=== PATIENT | male | born 1935 | race Caucasian/White ===

== ENCOUNTER 2016-10-16 16:26 | Inpatient (IN) | payer OTHER ==
[~2016-10-16] VITALS: Ht 182.9 cm; Wt 165.0 kg
[~2016-10-16 16:26] MED LIST: ADVAIR 250/501 DISK IH; ADVAIR HFA120 INHALA IH; Advair HFA 115/21 IH; Aldactone PO; COLACE100 MG PO; COZAAR100 MG PO; Colace PO; DESYREL100 MG PO; DILANTIN100 MG PO; DOCUSATE SODIU100 MG PO; DUONEB 2.5-0.5 M3 ML AEROSOL; DUONEB 2.5-0.5 M3 ML IH; Desyrel PO; Dilantin PO; FUROSEMIDE40 MG PO; HEPARIN SO5000 UNITS SC; Humibid LA,Mucinex PO; K-DUR20 MEQ PO; LASIX20 MG PO; LASIX40 MG PO; LEVAQUIN750 MG PO; LEVOFLOXACIN750 MG PO; LIPITOR10 MG PO; LOPRESSOR25 MG PO; LOSARTAN POTAS100 MG PO; LOVENOX40 MG/0.4 SC; Lasix PO; Lipitor PO; Lopressor PO; Lovenox SC; METOPROLOL TART25 MG PO; MITRAZOL POWDER30 GM TP; MONOKET,ISMO20 MG PO; MUCINEX600 MG PO; Maalox, Mylanta PO; Milk Of Magnesia,MOM PO; Norvasc PO; PAXIL20 MG PO; PERCOCET 5/31 TABLET PO; POLYETHYLENE GL17 GM PO; PREDNISONE10 M1 PO; PREDNISONE10 MG PO; PREDNISONE20 MG PO; PROTONIX40 MG PO; PROVENTIL,2.5 MG/0.5 IH; Paxil PO; Protonix PO; SPIRIVA RESPIMAT4 GM IH; SPIRIVA1 INHALATI IH; TUMS500 MG PO; Tums,OsCal PO; ZESTRIL5 MG PO; Zeasorb Antifungal T TP; Zestril,Prinivil PO; [UNRECOGNIZED DRUG - OTHER] PO
[2016-10-16 18:10] LABS: CARBON DIOXIDE (BICARBONATE) > 40.0 MEQ/L (20-31); MCH 30.5 PG (29.0-34.0); MCHC 29.5 G/DL (30.0-36.0); MCV 103.5 FL (86-99); MEAN PLAT.VOLUME 9.8 uM^3 (9.0-12.4); PLATELET COUNT 104 K/uL (156-360); RBC DIS.WIDTH-CV 13.3 % (11.8-14.6); RBC DIS.WIDTH-SD 49.4 % (39-53); RED BLOOD COUNT 3.67 M/uL (4.00-5.50); VENOUS PCO2 108 mm Hg (41-51); WHITE BLOOD COUNT 5.7 K/uL (4.1-10.2)
[2016-10-16 18:18] LABS: CHLORIDE 97 mEq/L (99-109); POTASSIUM 4.6 mEq/L (3.7-5.4); SODIUM 141 mEq/L (136-147)
[2016-10-16 18:20] LABS: GLUCOSE 111 mg/dL (70-99)
[2016-10-16 18:21] LABS: ANION GAP 10 MEQ/L (2-14)
[2016-10-16 18:24] LABS: GFR ESTIMATE (CALCULATED) 52 mL/min/; UREA NITROGEN (BUN) 24 mg/dL (9-23)
[2016-10-16 18:31] LABS: TROP-I INTERPRETATION NEGATIVE; TROPONIN-I < 0.01 ng/mL (0.0-0.30)
[2016-10-16] MEDS ORDERED: PHENYTOIN SODI200 MG PO (20:02)
[2016-10-16] MEDS ORDERED: LIPITOR40 MG PO (20:02)
[2016-10-16] MEDS ORDERED: LASIX40 MG PO (20:03)
[2016-10-16] MEDS ORDERED: ZEASORB-AF70 G1 TP (20:05)
[2016-10-16 21:00] VITALS: BP 132/74
[2016-10-16 21:13] VITALS: BP 138/74
[2016-10-16 22:00] VITALS: BP 152/79
[2016-10-16 22:53] LABS: METH RESISTANT S AUREUS PCR POSITIVE (NEGATIVE)
[2016-10-16 22:57] LABS: PROBE CHECK PASS
[2016-10-16 23:00] VITALS: BP 168/68
[2016-10-17] VITALS (18 sets, daily range): BP systolic 93–160; BP diastolic 46–95
[2016-10-17 01:36] LABS: MAGNESIUM 2.1 mg/dL (1.3-2.7)
[2016-10-17 05:40] LABS: HEMATOCRIT 35.2 % (38.0-50.0); MCH 30.3 PG (29.0-34.0); MCV 104.5 FL (86-99); MEAN PLAT.VOLUME 10.1 uM^3 (9.0-12.4); PLATELET COUNT 88 K/uL (156-360); RBC DIS.WIDTH-CV 13.1 % (11.8-14.6); RED BLOOD COUNT 3.37 M/uL (4.00-5.50)
[2016-10-17 05:41] LABS: WHITE BLOOD COUNT 3.9 K/uL (4.1-10.2)
[2016-10-17 05:42] LABS: CHLORIDE 101 mEq/L (99-109); POTASSIUM 4.8 mEq/L (3.7-5.4); SODIUM 141 mEq/L (136-147)
[2016-10-17 05:43] LABS: MAGNESIUM 2.1 mg/dL (1.3-2.7)
[2016-10-17 05:44] LABS: GLUCOSE 119 mg/dL (70-99)
[2016-10-17 05:46] LABS: ANION GAP 8 MEQ/L (2-14)
[2016-10-17 05:48] LABS: GFR ESTIMATE (CALCULATED) > 59 mL/min/
[2016-10-17 05:49] LABS: UREA NITROGEN (BUN) 23 mg/dL (9-23)
[2016-10-17 12:46] LABS: ADD MIUA? YES; BILIRUBIN SMALL; BLOOD NEGATIVE; COLOR YELLOW ((YELLOW)); GLUCOSE (STRIP) NEGATIVE; KETONES NEGATIVE; LEUKOCYTES NEGATIVE; NITRITE NEGATIVE; PH, URINE 5.5 (5-8); PROTEIN (STRIP) 30; SPECIFIC GRAVITY 1.021 (1.000-1.030); UROBILINOGEN 0.2 MG/DL (0.2-1.0)
[2016-10-17 13:09] LABS: FINE GRANULAR CASTS 0-5 /LPF; HYALINE CASTS RARE /LPF
[2016-10-17 13:10] LABS: RED BLOOD CELLS 0-5 /HPF (0-5)
[2016-10-17 13:12] LABS: AMORPHOUS URATES CRYSTALS 1+; BACTERIA NONE SEEN; CASTS PRESENT /LPF; CRYSTALS PRESENT; EPITHELIAL CELLS RARE; MUCUS NONE SEEN; WHITE BLOOD CELLS 0-5 /HPF (0-5)
[2016-10-17 18:29] LABS: BASE EXCESS 12.3 mEq/L (-3 to +3); BICARBONATE 39.9 mEq/L (22-26); CARBOXY HGB 2.7 % (0-5); COMMENTS - BLOOD GASES AC+; DEVICE 840 VENTILATOR; FI02 30 %; METHEMOGLOBIN 1.4 % (0-1.5); MODE NIPPV; PCO2 69 mm Hg (35-45); PO2 76 mm Hg (80-100); SITE LR; pH 7.37 (7.35-7.45)
[2016-10-17 18:30] LABS: CONTINUOUS POS AIRWAY PRESSURE 5 cm H2O; PRES. SUPPORT 10 CM/H2O; TOTAL RESP RATE 19 resp/min
[2016-10-18] VITALS (17 sets, daily range): BP systolic 88–139; BP diastolic 46–103
[2016-10-18 06:08] LABS: MCH 30.8 PG (29.0-34.0); MCHC 29.7 G/DL (30.0-36.0); MCV 103.7 FL (86-99); MEAN PLAT.VOLUME 10.2 uM^3 (9.0-12.4); PLATELET COUNT 84 K/uL (156-360); RBC DIS.WIDTH-CV 13.7 % (11.8-14.6); RBC DIS.WIDTH-SD 51.6 % (39-53); RED BLOOD COUNT 3.28 M/uL (4.00-5.50)
[2016-10-18 06:33] LABS: ANION GAP 4 MEQ/L (2-14); CHLORIDE 101 MEQ/L (99-109); GFR ESTIMATE (CALCULATED) 56 mL/min/; GLUCOSE 108 mg/dL (70-99); MAGNESIUM 2.1 mg/dl (1.3-2.7); POTASSIUM 4.6 MEQ/L (3.7-5.4); SAMPLE HEMOLYSIS CHECK 0; SAMPLE ICTERIC CHECK 0; SAMPLE LIPEMIA CHECK 0; SODIUM 142 MEQ/L (136-147); UREA NITROGEN (BUN) 24 mg/dL (9-23)
[2016-10-19] VITALS (7 sets, daily range): BP systolic 106–130; BP diastolic 52–69
[2016-10-19 06:25] LABS: ANION GAP 6 MEQ/L (2-14); CHLORIDE 98 MEQ/L (99-109); GFR ESTIMATE (CALCULATED) 44 mL/min/; GLUCOSE 122 mg/dL (70-99); POTASSIUM 5.2 MEQ/L (3.7-5.4); SAMPLE HEMOLYSIS CHECK 0; SAMPLE ICTERIC CHECK 0; SAMPLE LIPEMIA CHECK 0; SODIUM 139 MEQ/L (136-147); UREA NITROGEN (BUN) 29 mg/dL (9-23)
[2016-10-19 07:14] LABS: EOSINOPHIL (%) 0 % (0-5); HEMATOCRIT 40.3 % (38.0-50.0); IMMATURE GRANULOCYTE COUNT 0.1 K/uL; LYMPHOCYTE COUNT 0.9 K/uL (1.0-2.8); MCH 31.4 PG (29.0-34.0); MCHC 28.8 G/DL (30.0-36.0); MEAN PLAT.VOLUME 10.9 uM^3 (9.0-12.4); MONOCYTE (%) 9.5 % (3-12); MONOCYTE COUNT 0.6 K/uL (0-0.8); NEUTROPHIL COUNT 4.2 K/uL (1.8-6.4); PLATELET COUNT 84 K/uL (156-360); RBC DIS.WIDTH-CV 13.7 % (11.8-14.6); RBC DIS.WIDTH-SD 54.2 % (39-53)
[2016-10-19 07:15] LABS: MCV 108.9 FL (86-99); WHITE BLOOD COUNT 5.8 K/uL (4.1-10.2)
[2016-10-20 04:12] VITALS: BP 130/72
[2016-10-20 06:00] LABS: MCH 30.7 PG (29.0-34.0); MCHC 28.9 G/DL (30.0-36.0); MEAN PLAT.VOLUME 10.5 uM^3 (9.0-12.4); PLATELET COUNT 73 K/uL (156-360); RBC DIS.WIDTH-CV 13.7 % (11.8-14.6); RED BLOOD COUNT 3.49 M/uL (4.00-5.50); WHITE BLOOD COUNT 6.3 K/uL (4.1-10.2)
[2016-10-20 06:15] LABS: EOSINOPHIL (%) 0.2 % (0-5); IMMATURE GRANULOCYTE (%) 0.8 % (0.0-0.7); IMMATURE GRANULOCYTE COUNT 0.1 K/uL; LYMPHOCYTE COUNT 1.1 K/uL (1.0-2.8); MONOCYTE (%) 9.6 % (3-12); MONOCYTE COUNT 0.6 K/uL (0-0.8); NEUTROPHIL (%) 71.5 % (45-76); NEUTROPHIL COUNT 4.5 K/uL (1.8-6.4)
[2016-10-20 06:26] LABS: ANION GAP 5 MEQ/L (2-14); CHLORIDE 100 MEQ/L (99-109); GFR ESTIMATE (CALCULATED) 34 mL/min/; GLUCOSE 114 mg/dL (70-99); SAMPLE HEMOLYSIS CHECK 0; SAMPLE ICTERIC CHECK 0; SAMPLE LIPEMIA CHECK 0; SODIUM 141 MEQ/L (136-147); UREA NITROGEN (BUN) 37 mg/dL (9-23)
[2016-10-20 13:30] VITALS: BP 98/70
[2016-10-20 19:40] VITALS: BP 130/87
[2016-10-21 06:37] LABS: HEMATOCRIT 33.5 % (38.0-50.0); MCHC 29.9 G/DL (30.0-36.0); MCV 103.7 FL (86-99); PLATELET COUNT 55 K/uL (156-360); RBC DIS.WIDTH-CV 13.7 % (11.8-14.6); RBC DIS.WIDTH-SD 51.3 % (39-53); RED BLOOD COUNT 3.23 M/uL (4.00-5.50)
[2016-10-21 06:38] LABS: WHITE BLOOD COUNT 3.8 K/uL (4.1-10.2)
[2016-10-21 06:56] LABS: ANION GAP 8 MEQ/L (2-14); CHLORIDE 101 MEQ/L (99-109); GFR ESTIMATE (CALCULATED) 31 mL/min/; GLUCOSE 113 mg/dL (70-99); POTASSIUM 5.5 MEQ/L (3.7-5.4); SAMPLE HEMOLYSIS CHECK 0; SAMPLE ICTERIC CHECK 0; SAMPLE LIPEMIA CHECK 0; SODIUM 143 MEQ/L (136-147); UREA NITROGEN (BUN) 44 mg/dL (9-23)
[2016-10-21 08:00] VITALS: BP 118/68
[2016-10-21 12:05] LABS: INTER. NORMALIZED RATIO 1.3; PROTHROMBIN TIME 13.2 (9.2-11.2); PTT 26.5 (25-32)
[2016-10-21 14:14] LABS: TYPE OF FLUID PLEURAL
[2016-10-21 14:51] LABS: BODY FLUID RBC'S 12000 /MM^3 (0-100); BODY FLUID WBC'S 500 /MM^3 (0-500)
[2016-10-21 14:56] LABS: BODY FLUID EOSINOPHILS 0 % (0-25); MONO RAW COUNT 91; MONONUCLEAR WBC'S 91 %; POLY RAW COUNT 9; POLYNUCLEAR WBC'S 9 % (0-25)
[2016-10-21 15:40] LABS: BODY FLUID LDH 49 IU/L
[2016-10-21 16:00] VITALS: BP 141/84
[2016-10-21 16:11] LABS: BODY FLUID PROTEIN < 2 G/DL
[2016-10-21 20:40] VITALS: BP 120/72
[2016-10-22 04:45] VITALS: BP 137/64
[2016-10-22 06:48] LABS: HEMATOCRIT 35.7 % (38.0-50.0); MCH 31.1 PG (29.0-34.0); MCV 103.8 FL (86-99); MEAN PLAT.VOLUME 11.6 uM^3 (9.0-12.4); PLATELET COUNT 64 K/uL (156-360); RBC DIS.WIDTH-CV 13.9 % (11.8-14.6); RBC DIS.WIDTH-SD 52.1 % (39-53); RED BLOOD COUNT 3.44 M/uL (4.00-5.50)
[2016-10-22 06:52] LABS: WHITE BLOOD COUNT 5.1 K/uL (4.1-10.2)
[2016-10-22 07:06] LABS: ANION GAP 6 MEQ/L (2-14); CHLORIDE 101 MEQ/L (99-109); GFR ESTIMATE (CALCULATED) 31 mL/min/; GLUCOSE 120 mg/dL (70-99); POTASSIUM 4.8 MEQ/L (3.7-5.4); SAMPLE HEMOLYSIS CHECK 0; SAMPLE ICTERIC CHECK 0; SAMPLE LIPEMIA CHECK 0; SODIUM 143 MEQ/L (136-147); UREA NITROGEN (BUN) 49 mg/dL (9-23)
[2016-10-22 08:23] VITALS: BP 130/70
[2016-10-22 16:05] VITALS: BP 122/79
[2016-10-23] VITALS: BP 136/89
[2016-10-23 08:35] LABS: HEMATOCRIT 38.1 % (38.0-50.0); MCH 30.6 PG (29.0-34.0); MCHC 28.6 G/DL (30.0-36.0); MEAN PLAT.VOLUME 11.2 uM^3 (9.0-12.4); PLATELET COUNT 57 K/uL (156-360); RBC DIS.WIDTH-CV 13.6 % (11.8-14.6); RBC DIS.WIDTH-SD 53.4 % (39-53); RED BLOOD COUNT 3.56 M/uL (4.00-5.50); WHITE BLOOD COUNT 5.1 K/uL (4.1-10.2)
[2016-10-23 08:38] LABS: EOSINOPHIL (%) 0 % (0-5); IMMATURE GRANULOCYTE (%) 1.2 % (0.0-0.7); IMMATURE GRANULOCYTE COUNT 0.1 K/uL; MONOCYTE (%) 8.3 % (3-12); MONOCYTE COUNT 0.4 K/uL (0-0.8); NEUTROPHIL (%) 70.3 % (45-76); NEUTROPHIL COUNT 3.6 K/uL (1.8-6.4)
[2016-10-23 08:39] VITALS: BP 143/86
[2016-10-23 09:00] LABS: ANION GAP 4 MEQ/L (2-14); CHLORIDE 99 MEQ/L (99-109); GFR ESTIMATE (CALCULATED) 29 mL/min/; GLUCOSE 111 mg/dL (70-99); SAMPLE HEMOLYSIS CHECK 0; SAMPLE ICTERIC CHECK 0; SAMPLE LIPEMIA CHECK 0; SODIUM 140 MEQ/L (136-147); UREA NITROGEN (BUN) 52 mg/dL (9-23)
[2016-10-23] MEDS ORDERED: DOCUSATE SODIU100 MG PO (15:42)
[2016-10-23] MEDS ORDERED: PREDNISOLONE SO10 MG PO (15:45)
[2016-10-23] MEDS ORDERED: LEVAQUIN750 MG PO (15:45)
[2016-10-23] MEDS ORDERED: DUONEB 2.5-0.5 M3 ML AEROSOL ×2 (15:45)
[2016-10-23] MEDS ORDERED: BENZONATATE100 MG PO (15:45)
[2016-10-23] MEDS ORDERED: HYOSCYAMINE0.125 M2 PO (15:49)
[2016-10-23] MEDS ORDERED: MORPHINE CON20 MG/M1 PO (15:49)
[2016-10-23] MEDS ORDERED: FAMOTIDINE20 MG PO (15:49)
[2016-10-23] MEDS ORDERED: LORAZEPAM0.5 MG PO (15:49)
[2016-10-23 16:11] VITALS: BP 161/92
== END 2016-10-23 18:04 | disposition hospice, home (50) | DRG 190 ==
LOC: EME → EDBD 16:26 → EME 16:26 → 4WEST 19:35 → EDOF 19:35 → 5EAST 19:35 → EDOF 19:35 → 4WEST 20:43 → 5EAST 10-19 18:14
PROVIDERS: Emergency Medicine; Family Medicine
PROC: 0W993ZZ Drainage of Right Pleural Cavity, Percutaneous Approach (ICD-10-PCS; principal; 2016-10-20)
DX: J44.0 Chronic obstructive pulmonary disease with (acute) lower respiratory infection (principal); J96.22 Acute and chronic respiratory failure with hypercapnia; J96.21 Acute and chronic respiratory failure with hypoxia; J18.9 Pneumonia, unspecified organism; I13.0 Hypertensive heart and chronic kidney disease with heart failure and stage 1 through stage 4 chronic kidney disease, or unspecified chronic kidney disease; N17.9 Acute kidney failure, unspecified; J90 Pleural effusion, not elsewhere classified; Z68.43 Body mass index [BMI] 50.0-59.9, adult; I50.9 Heart failure, unspecified; F03.90 Unspecified dementia, unspecified severity, without behavioral disturbance, psychotic disturbance, mood disturbance, and anxiety; J44.1 Chronic obstructive pulmonary disease with (acute) exacerbation; E78.5 Hyperlipidemia, unspecified; G47.33 Obstructive sleep apnea (adult) (pediatric); E66.01 Morbid (severe) obesity due to excess calories; N18.9 Chronic kidney disease, unspecified; J45.909 Unspecified asthma, uncomplicated; G89.29 Other chronic pain; M54.5 Low back pain; K21.9 Gastro-esophageal reflux disease without esophagitis; M19.90 Unspecified osteoarthritis, unspecified site; I87.2 Venous insufficiency (chronic) (peripheral); Z86.73 Personal history of transient ischemic attack (TIA), and cerebral infarction without residual deficits
CPT/HCPCS: 36600; 71010; 80048; 81003; 82803; 82945; 83605; 83615 91; 83735; 83880; 84100; 84157; 84484; 85025; 85027; 85610; 85730; 87040; 87070; 87075; 87086; 87205; 87641; 88108; 88305; 89051; 93005; 94002; 94003; 94640; 94640 76; 94660; 94760; 94799; 99281; 99285; J0456; J0692; J1100; J1644; J2405; J2920; J3370; J7050; J7120; S0028